=== PATIENT | female | born 1995 | race Caucasian/White ===

== ENCOUNTER → 2024-04-26 | Outpatient (REF) | payer OTHER ==
[2024-04-26 19:06] LABS: THYROID STIMULATING HORMONE 1.341 uIU/ML (0.55-4.78)
[2024-04-26 19:08] LABS: ALKALINE PHOSPHATASE 67 U/L (35-104); ALT/SGPT 27 U/L (7.0-40); AST/SGOT 17 U/L (<34); BILIRUBIN,TOTAL 0.4 MG/DL (0.3-1.2); BLOOD UREA NITROGEN 14 MG/DL (9-23); CALCIUM LEVEL 9.6 MG/DL (8.5-10.1); CARBON DIOXIDE LEVEL 24 MMOL/L (20-31); CHLORIDE LEVEL 103 MMOL/L (98-107); CHOLESTEROL LEVEL 256 MG/DL (<200); CHOLESTEROL RISK RATIO 4.53 (<5); CREATININE FOR GFR 0.87 MG/DL (0.55-1.30); GLOMERULAR FILTRATION RATE > 60.0 (>60); GLUCOSE, FASTING 78 MG/DL (60-100); HDL CHOLESTEROL 56.4 MG/DL (>40); LDL CHOLESTEROL 169.4 MG/DL (<100); NON-HDL-C 199.6 MG/DL; POTASSIUM SERUM 4.2 MMOL/L (3.5-5.1); SODIUM LEVEL 138 MMOL/L (136-145); TOTAL PROTEIN 7.7 G/DL (5.7-8.2); TRIGLYCERIDES LEVEL 151 MG/DL (<150)
[2024-04-26 19:16] LABS: HEMOGLOBIN A1c 5.2 % (4.0-6.0)
[2024-04-26 19:32] LABS: HIV 1&2 SCREEN NEGATIVE (NEGATIVE)
[2024-04-26 19:39] LABS: HEPATITIS C VIRUS ABY INDEX 0.04 INDEX (<0.8)
[2024-04-26 20:17] LABS: TOTAL 25(OH) VITAMIN D 25.5 NG/ML (20.0-100.0)
== END ==
LOC: M LAB REF 17:31
PROVIDERS: ATTEND Physician Assistant
DX: Z11.9 Encounter for screening for infectious and parasitic diseases, unspecified (principal); E66.9 Obesity, unspecified; E55.9 Vitamin D deficiency, unspecified

== ENCOUNTER 2024-05-07 15:35 | Emergency (ER) | payer OTHER ==
[~2024-05-07] VITALS: Ht 160 cm; Wt 83.0 kg
[2024-05-07 15:41] VITALS: BP 141/93; TEMP 97.8; O2SAT 98
== END 2024-05-07 18:01 | disposition left against medical advice (07) ==
LOC: M ED 15:35
DX: Z53.21 Procedure and treatment not carried out due to patient leaving prior to being seen by health care provider (principal)

== ENCOUNTER → 2024-12-23 | Outpatient (CLI) | payer OTHER | LOC: M WUC 15:44 | PROVIDERS: ATTEND Student in an Organized Health Care Education/Training Program | DX: R05.1 Acute cough (principal); R91.8 Other nonspecific abnormal finding of lung field ==